=== PATIENT | male | born 1970 | race Caucasian/White ===

== ENCOUNTER → 2018-08-16 | Outpatient (CLI) | payer OTHER ==
[~2018-08-16] MED LIST: DIOVAN 40MG40 MG PO; INDOCIN50 MG PO; NORCO 325 MG-51 TAB PO
[2018-08-16 10:48] LABS: C-REACTIVE PROTEIN < 0.5 mg/dL (0.0-0.9)
[2018-08-17 00:20] LABS: RHEUMATOID FACTOR-SCREEN <15 IU/mL (0-29)
== END ==
LOC: COL.LAB 09:51
PROVIDERS: Orthopaedic Surgery Sports Medicine
DX: M25.572 Pain in left ankle and joints of left foot (principal)

== ENCOUNTER 2019-09-12 08:00 | Outpatient (RCR) | payer BC | END 2019-11-08 | disposition home or self-care (01) | LOC: MKS.ESL.PT | DX: M25.512 Pain in left shoulder (principal) ==